=== PATIENT | male | born 1990 | race Caucasian/White ===

== ENCOUNTER 2016-07-22 19:17 | Emergency (ER) | payer SELFPAY ==
[~2016-07-22] VITALS: Ht 170.2 cm; Wt 67.6 kg
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
[2016-07-22 20:03] VITALS: Ht 170.2 cm; Wt 67.6 kg
--- NOTE | 2016-07-22 20:57 | NUR ---
RM 1 PT IS BROUGHT BACK TO [facility] 1 WITH FAMILY
[2016-07-22] MEDS ORDERED: NO MEDICATIONS (21:02)
--- NOTE | 2016-07-22 21:20 | NUR ---
RM CHANGE PT IS MOVED TO [facility].
--- OUTSIDE RECORDS SUMMARY | 2016-07-22 21:32 | XMS REPORT | Continuity of Care Document ---
Author Author [facility] [place] [facility] Address Unknown Phone Unavailable Allergies Medications Problems Date Dx Coded Attending Type Code Diagnosis Diagnosed By 08/08/2015 F F12.20 Cannabis dependence, uncomplicated Emi Lagunas 08/08/2015 F F12.20 Cannabis dependence, uncomplicated 08/08/2015 [...] Status Pt. Type Provider Facility Loc./Unit Complaint [id number] 08/08/2015 14:50:00 08/08/2015 23:59:59 CLS Outpatient
--- NOTE | 2016-07-22 21:44 | ERPDOC ---
Departure Disposition Decision Date: July 22, 2016 Disposition Decision Time: 21:56 Disposition: 01 DISCHARGED HOME, SELF-CARE Impression Impression Impression: Primary Impression: Ingrowing nail, left great toe Additional Impression: Ingrowing nail, right great toe Severity: Moderate Condition: Stable Seen By: Physician only Referrals: YOUR PHYSICIAN 1 Week Patient Instructions: Ingrown Nail (ED) Problems/Meds/Labs Reviewed?: Yes Medications reviewed and manag: Yes Additional Instructions: You have ingrowing toenails, without a deep space infection. Take the antibiotics to help quiet the infection and prevent spread to the deep spaces. Establish with PCM to remove recurrent, ingrowing nails. [facility], [email or web address] in [place], or [facility] are all options. Follow up care ordered?: Yes Mental Status: Alert, Oriented Scripts Sulfamethoxazole/Trimethoprim (Bactrim Ds Tablet) 1 Each Tablet 1 TAB PO BID for 7 Days, #14 TAB Prov: JULYONEL DO 07/22/16 HPI - Lower Extremity General Chief Complaint: Lower Extremity Pain Stated Complaint: INGROWN TOENAILS Time Seen by Provider: 21:23 Source: patient Exam Limitations: no limitations HPI - Lower Extremity Initial Comments 26yo man presents to the ER tonairam with b/l ingrowing toenails. Pt has had this numerous times before. Has been soaking his feet in epsom salts, using bactene, and occasional H2O2, all without relief. Pt just moved to [place] and has no PCM. Occurred At: home Onset/Timing: Gradual, Getting worse Duration: other (4 months) Pain/Severity Scale: Now & Worst: 8/10 Severity: severe Pain/Injury Location: bilateral 1st toe Method of Injury: other Modifying Factors/Context: IMPROVES WITH: immobilization, pain medication, WORSE WITH: movement Hx of Similar Symptoms: Yes Quality: sharpness, throbbing Allergies: Coded Allergies: No Known Allergies (Unverified , 07/22/16) Past History Past Medical History Pt denies signifigant PMH Review of Systems Integumentary Skin: infections Physical Exam General General Nourishment: well nourished, well developed, appears stated age, no acute distress, adult, thin Vitals and Pain First Documented Vital Signs Date Time Temp Pulse Resp B/P Pulse Ox O2 Delivery O2 Flow Rate FiO2 07/22/16 20:03 98.2 74 16 135/66 98 Room Air Weight: Kilograms: 67.600 Height (feet): 5 Height (inches): 7.00 Triage Pain Scale: Musculoskeletal Extremity #1: Side: Left Extremity: toe(s) Extremity Findings: FOUND: pain, swelling, NOT FOUND: deformity, discoloration, laceration Comments B/l edges of nail of 1st toe are red, swollen, and TTP. No fluctuance, induration, or drainage. Extremity #2: Side: Right Extremity: toe(s) Extremity Findings: FOUND: pain, swelling, NOT FOUND: deformity, discoloration, laceration Comments B/l edges of nail of 1st toe are red, swollen, and TTP. No fluctuance, induration, or drainage. Supervisory Exam Head: atraumatic Eyes: PERRL Nares: no exudate Neck: trachea midline Chest: symmetric Abdomen: non-distended Musculoskeletal: no deformity or atrophy Neurological: no abnormal movements Skin: pink, dry Psychological: alert, appropriate Differential Diagnoses Considering: Cellulitis, Other (abscess, paronychia, felon) Progress Progress Progress Pt with b/l ingrowing toenails. Discussed dx, prognosis, tx, and need for f/u for definitive care. Pt and GF voiced understanding. Will give atbx to help quiet infx and prevent spread to deep spaces. Establish with PCM to remove recurrent, ingrowing nails. ONEL CABRERA DO July 22, 2016 21:44
[2016-07-22] MEDS ORDERED: SULF1TAB42 PO (21:59)
[2016-07-22] MEDS ORDERED: TMP DS SENT HOME ONE (22:00)
[2016-07-22] MEDS ORDERED: SULFAMETHOXAZOLE SENT HOME ONE (22:00)
[2016-07-22 22:30] VITALS: BP 119/55; PULSE 76; RESP 18; TEMP 98.2; O2SAT 94
--- NOTE | 2016-07-22 22:30 | NUR ---
DEPART PT IS GIVEN DISMISSAL INSTRUCTIONS WITH VERBAL UNDERSTANDING. PT IS GIVEN PREPACK AND SCRIPTS. EXPLAINED TO P T TO RECHECK WITH PCP-PT HAS NO PCP. SHOWED PT BACK PAGE OF DC PAPERWORK FOR LIST OF PROVIDERS. SHOWED [facility] AN OPTION IF NO INSURANCE. PT IS AMBULATORY WITH FAMILY TO ED REGISTRATION DESK
== END 2016-07-22 22:30 | disposition home or self-care (01) ==
LOC: ED 19:17
DX: L60.0 Ingrowing nail (principal)